=== PATIENT | female | born 1940 | race Hispanic/Latino ===

== ENCOUNTER 2016-11-09 11:54 | Day surgery (SDC) | payer MEDICARE ==
[2016-11-06 09:45] VITALS: BMI 23.1
[2016-11-09] MEDS ORDERED: Propofol 10 mg/ml Inj (20 ML) ONE (12:29)
[2016-11-09] MEDS ORDERED: Sodium Chloride 0.9% 1,000 ML IV SCH (13:00)
[2016-11-09 13:24] VITALS: PULSE 60
[2016-11-09 13:58] VITALS: BP 122/49; RESP 16; TEMP 97.8; O2SAT 99
== END 2016-11-09 14:14 | disposition home or self-care (01) ==
LOC: ENDO 11:54
PROVIDERS: ATTEND Internal Medicine
DX: D12.5 Benign neoplasm of sigmoid colon (principal); Z90.49 Acquired absence of other specified parts of digestive tract; K63.89 Other specified diseases of intestine; K57.30 Diverticulosis of large intestine without perforation or abscess without bleeding; K64.8 Other hemorrhoids; E78.00 Pure hypercholesterolemia, unspecified; F41.9 Anxiety disorder, unspecified; F32.89 Other specified depressive episodes; D50.9 Iron deficiency anemia, unspecified
CPT/HCPCS: 45380; 88305; J2001; J2704; J7040 ×2

== ENCOUNTER 2017-03-15 07:56 | Day surgery (SDC) | payer MEDICARE ==
[2017-03-15 08:54] VITALS: BMI 23.1
[2017-03-15] MEDS ORDERED: Bupivacaine 0.5% Inj(30mL) ONE (09:46)
[2017-03-15] MEDS ORDERED: Propofol 10 mg/ml Inj (20 ML) ONE (09:54)
[2017-03-15] MEDS ORDERED: Midazolam 2 MG/2 ML VIAL ONE (09:54)
[2017-03-15] MEDS ORDERED: Rocuronium 10 mg/ml (5 ml) ONE (09:57)
[2017-03-15] MEDS ORDERED: Succinylcholine 200 mg/10 ml Inj IV ONE (09:57)
[2017-03-15] MEDS ORDERED: Phenylephrine 10 mg/ml Inj ONE (10:15)
[2017-03-15] MEDS ORDERED: Neostigmine Methylsulfate 3mg/3ml Syringe IV ONE (11:39)
[2017-03-15] MEDS ORDERED: Morphine 2 mg/ml ISec IVP PRN (11:48)
[2017-03-15] MEDS ORDERED: Oxycodone/Acetaminophen 5/325 mg Tab PO PRN (11:49)
--- NOTE | 2017-03-15 11:49 | PCM.SURG1 ---
Surgeon's Initial Post Op Note - Surgeon's Notes Surgeon: Dr. Raya Diffusion Operator: Dr. Luciano PGY-2, Dr. Escobar PGY-1 Type of Anesthesia: General Endo Pre-Operative Diagnosis: incisional hernia Operative Findings: see operative report Post-Operative Diagnosis: see operative report Operation Performed: laparoscopic extensive lysis of adhesions, abdominal and pelvic adhesions. laparoscopic incisional hernia repair w/ mesh placement Specimen/Specimens Removed: none Estimated Blood Loss: EBL {In ML}: 10 Blood Products Given: N/A Drains Used: No Drains Post-Op Condition: Good Date of Surgery/Procedure: 03/15/17 Time of Surgery/Procedure: 11:49
[2017-03-15] MEDS ORDERED: Lactated Ringer's 1,000 ML IV SCH (12:00)
[2017-03-15] MEDS ORDERED: Morphine 2 mg/ml ISec ONE (12:21)
[2017-03-15 13:38] VITALS: PULSE 56; RESP 20; TEMP 97.4; O2SAT 94
--- NOTE | 2017-03-15 14:10 | OP ---
PROCEDURE DATE: 03/15/2017 PREOPERATIVE DIAGNOSIS: Incarcerated incisional hernia. POSTOPERATIVE DIAGNOSES: Incarcerated incisional hernia and dense intraabdominal and pelvic adhesions. PROCEDURE PERFORMED: 1. Laparoscopic repair of the incisional hernia with Symbotex mesh (20 x 12 cm). 2. Lysis of dense intraabdominal and pelvic adhesions. SURGEON: Darren Raya MD ASSOCIATE PARTNER: Dr. Luciano. ANESTHESIOLOGIST: Jason Graham MD ANESTHESIA: General endotracheal anesthesia. ESTIMATED BLOOD LOSS: Minimal. SPECIMEN: None. INDICATIONS FOR THE PROCEDURE: The patient is a 76-year-old female with history of previous colostomy, status post colostomy reversal and previous surgery for colon perforation. The patient now developed a painful lower abdominal hernia, associated discomfort and was examined and was noted to have the hernia and was scheduled for the repair. DESCRIPTION OF PROCEDURE: The patient was brought to the operating room, placed on the operating table in supine position. The patient was connected to the EKG, blood pressure, and pulse oximetry monitor. The patient then underwent general endotracheal anesthesia and was prepped and draped in usual sterile fashion. First, standard time-out procedure took place and everybody in the room agreed to the patient's identity, diagnoses, and procedure to be performed. First using lidocaine mixed with Marcaine in an area of incision was infiltrated on the left subcostal margin and in mid clavicular line. Carefully incision was made through the skin and under direct visualization through the Visiport, the 12 mm port was advanced into the abdominal cavity. Careful evaluation was done due to the previous surgeries. Once this was advanced and the pneumoperitoneum was obtained, a careful evaluation with the scope revealed the presence of dense intraabdominal adhesions with a pocket of free space in the left upper quadrant. The second 5 mm trocar was inserted in that area and carefully the adhesions of omentum to the anterior abdominal wall was started to be taken down. Those adhesions extended throughout the entire abdominal cavity all the way around to the pelvis and included also loops of small bowel being adhesed to the anterior abdominal wall. After a tedious and exhausting dissection of all those adhesions for over 65 minutes or so, I was able to finally clear up and showed the defect in the anterior abdominal wall. The main defect, which was about 4 cm in diameter, was in the lower abdomen, at the base of the previous incision though several small herniations through the incision secondary to the stitches going along towards the umbilicus and slightly above. Given all those findings, decision was made to proceed with placement of a 20 x 12 cm Symbotex mesh and once this was fixed to the stitch, the mesh was then placed into the abdominal cavity and placed against the defect. There was adequate area to have 4 cm of the overlap of the mesh over the fascia. Once this was done, I then proceeded with placing dissolvable tacks in order to fix the mesh to the anterior abdominal wall first running a row along the end of the mesh, then another row about a centimeter and a half distal to the edge and then multiple single tacks throughout the mesh in order to fix it to any of the underlying fascia. Once this was completed and the defects were covered with mesh, I then carefully examined the rest of the abdominal cavity, all the small bowel, which was earlier detached appeared to be intact. There was no bleeding. The abdominal cavity was looking clean and there was no abnormalities on the bowel noted. The bowel that was within the hernia appeared to be viable with no injury noted. At this point, pneumoperitoneum was released after the trocars were evaluated and showed no bleeding and once pneumoperitoneum was released, trocars were removed and the wounds closed using 0 Vicryl for the fascia, 3-0 Vicryl for the subcutaneous tissue, and 4-0 Monocryl for the skin. A sterile Dermabond dressing was applied to the wound. The patient tolerated the procedure well and there were no complications. The patient was awakened and transferred to recovery room for further observation. Darren Raya MD
[2017-03-15 15:15] VITALS: BP 117/55
[2017-03-15] MEDS ORDERED: Oxycodone/Acetaminophen 5/325 mg Tab ONE (15:50)
== END 2017-03-15 16:42 | disposition home or self-care (01) ==
LOC: SDS 07:56
PROVIDERS: ATTEND General Practice
DX: K43.0 Incisional hernia with obstruction, without gangrene (principal); N73.6 Female pelvic peritoneal adhesions (postinfective)
CPT/HCPCS: 49655; J0330; J0690; J1885; J2250; J2270; J2370; J2405; J2704; J2710; J3010; J7120 ×2